=== PATIENT | female | born 1950 | race Caucasian/White ===

== ENCOUNTER → 2016-11-28 | Outpatient (CLI) | payer MEDICARE, OTHER ==
[~2016-11-28] MED LIST: ALLO100T51 PO; AMIO200T7 PO; BIOT25008; CODE1CAP20 PO; FISH1CAP47 PO; FLEC100T21 PO; FURO20TA6 PO; HYDR-2119 PO; INDA1.2516 PO; IRON18TA PO; LACT1CAP80; LINA5TAB PO; LOSA100T7 PO; METH750T3 PO; MULT-806 PO; PITA1TAB PO; POTA20TA69 PO; SITA50TA3 PO; TRAM50TA4 PO; VITA-286 PO; [UNRECOGNIZED DRUG - CODE] PO; [UNRECOGNIZED DRUG - CODE] PO
--- NOTE | 2016-11-28 11:38 | DI ---
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 Central pulmonary vasculature is within normal limits. Left-sided chest port is in place the tip overlying the upper SVC. Chronic blunting the costophrenic angles suggestive of pleural thickening. There is stable basilar atelectasis/scarring suggested. There is no pneumothorax. IMPRESSION: 1. [id number] cardiomegaly without evidence for overt CHF or pneumonia. 2. Bibasal atelectasis or scarring again demonstrated. .
--- NOTE | 2016-11-28 15:46 | DI ---
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 TECHNIQUE: Multiple real-time grayscale sonographic images were obtained of the pelvis transabdominally and transvaginally with and without color flow and spectral analysis. FINDINGS: There is again noted to be a large partially septated pelvic cystic mass measuring 12.0 x 9.1 x 6.8 cm not significantly changed from the prior study dated 07/12/2016 measuring 11.9 x 9 x 12.3 cm. There is fluid in the cervical canal. No abnormal color flow. Impression: Large partially septated appearing pelvic fluid collection within the pelvis not significant changed in size from the prior study in June 2016. No significant abnormal color flow within the pelvis. .
== END ==
LOC: IMA 11:04
PROVIDERS: ATTEND Internal Medicine Medical Oncology
DX: C56.1 Malignant neoplasm of right ovary (principal); C48.8 Malignant neoplasm of overlapping sites of retroperitoneum and peritoneum; I51.7 Cardiomegaly; J98.11 Atelectasis; R93.8 Abnormal findings on diagnostic imaging of other specified body structures

== ENCOUNTER → 2016-12-13 | Outpatient (CLI) | payer MEDICARE, OTHER ==
--- NOTE | 2016-12-13 13:10 | DI ---
Indication: ITS.REASON: C56.1 RIGHT OVARIAN CA PROCEDURE: PET/CT SKULL TO THIGH SUBS: Encounter: Subsequent Comparison: PET/CT dated August 02, 2016 Technique: 15.8 mCi of F-18 FDG was administered intravenously via the right antecubital fossa. Approximately 60 minutes later 3D PET/CT imaging was performed from the skull base through the mid thighs. The CT images are for attenuation correction purposes only. Findings: No areas of abnormal uptake seen within the skull base or neck. Left maxillary sinus mucosal disease. Uptake in the neck is more symmetric on today's exam compared to the prior study.. There is increased uptake in the anterior paraspinal musculature bilaterally which could be due to brown fat activation. No discrete metabolically active lymphadenopathy within the neck or chest. No FDG avid pulmonary nodules or masses. Expected myocardial uptake. Stable small area of uptake in a left internal mammary node, less than the mediastinal background at location -[id number]. This has an SUV max of 2.4. Liver uptake is mildly heterogeneous without discrete enhancing mass. Expected genitourinary and bowel uptake. Continued uptake along the anterior abdominal wall although this has improved from the prior study. Interval resolution of the majority of the uptake in the left rectus musculature. The amount of omental thickening is slightly decreased from the prior study. Uptake in the right adnexa has decreased in size and intensity now with an SUV max of 4 compared to 5.5 previously. The overall size of the cystic pelvic lesion is stable. No definite new sites of metastatic disease appreciated. Impression: Interval improvement in omental metastatic disease and decreasing uptake within the right adnexal mass. No new sites of metastatic disease appreciated. .
== END ==
LOC: IMA 09:12
PROVIDERS: ATTEND Internal Medicine Medical Oncology
DX: C56.1 Malignant neoplasm of right ovary (principal); C78.6 Secondary malignant neoplasm of retroperitoneum and peritoneum

== ENCOUNTER → 2017-01-16 | Outpatient (CLI) | payer MEDICARE, OTHER ==
[2017-01-16 10:07] LABS: ALBUMIN 3.2 G/DL (3.5-5.0); ANION GAP 11 MEQ/L (5-15); BUN/CREATININE RATIO 14 RATIO (6-26); CALCIUM 9.7 MG/DL (8.4-10.2); CHLORIDE 108 MEQ/L (98-107); CO2 - CARBON DIOXIDE 26 MEQ/L (22-30); CREATININE 2.6 MG/DL (0.7-1.2); GLOMERULAR FILTRATION RATE 18; GLUCOSE 104 MG/DL (65-110); MAGNESIUM 2.6 MG/DL (1.6-2.3); POTASSIUM 4.2 MEQ/L (3.6-5); SODIUM 145 MEQ/L (134-144)
== END ==
LOC: LABN 09:47
PROVIDERS: ATTEND Internal Medicine Nephrology
DX: N18.4 Chronic kidney disease, stage 4 (severe) (principal); R60.9 Edema, unspecified
CPT/HCPCS: 80069; 82306; 83735; 83970